=== PATIENT | male | born 1960 | race Caucasian/White ===

== ENCOUNTER 2016-04-27 15:11 | Emergency (ER) | payer OTHER ==
[~2016-04-27] VITALS: Wt 73.5 kg
[~2016-04-27 15:11] MED LIST: ASPI81TA3 PO; CALC667T2 PO; CENTSILV PO; HYDR-3671 PO; INSU100C SC; INSU100C5 SQ; ISOS60TA36 PO; METO-53 PO; OMEP20CA16 PO; SIMV20TA PO; VITAMIN B12 PO
--- NOTE | 2016-04-27 16:44 | EN ---
Date/Time of Note Date/Time of Note DATE: 04/27/16 TIME: 16:42 ER Progress Note 56-year-old male with a past medical history of diabetes and renal failure is currently receiving hemodialysis 3 times a week and is here for a right foot injury. States that he jammed his right great toe and it started to blister and is not healing properly since 4 days ago. States that he saw his primary care physician earlier today and was sent here to the ER for further evaluation and treatment. Patient was seen here at [facility] however will be sent to ED2 for further evaluation and treatment. MARVEL AVENDAÑO PA-C Apr 27, 2016 16:44
--- NOTE | 2016-04-27 18:30 | RADRPT ---
PROCEDURE: XR Toes. CLINICAL INDICATION: Post traumatic right great toe pain TECHNIQUE: AP, oblique and lateral views of the right great toe were performed. COMPARISON: No prior studies are available for comparison. FINDINGS: There is normal mineralization and alignment. No fracture or osseous lesion is identified. The joint s are normal. The soft tissues are unremarkable. There is no evidence for radiopaque foreign body. A therosclerotic calcification of the digital arteries is present. RPTAT:HJJR IMPRESSION: 1. No evidence of acute post traumatic abnormality of the right great toe. 2. Atherosclerotic calcification of the digital artery. Physician Dora Date Time Electronically viewed and signed by Physician Dora on 04/27/2016 18:30 JR/
[2016-04-27] MEDS ORDERED: CEPH-443 PO (18:34)
[2016-04-27] MEDS ORDERED: BAC30OI TOP (18:34)
[2016-04-27 18:53] VITALS: BP 185/86; PULSE 75; RESP 17; TEMP 98.3
--- NOTE | 2016-04-27 19:20 | ERD ---
ER Documentation Chief Complaint Date/Time DATE: 04/27/16 TIME: 19:17 Chief Complaint right great toe blister that popped. no fevers. no active bleeding HPI 56-year-old male with a history of renal insufficiency, diabetes was referred to the emergency department for right great toe trauma that occurred 2 days ago. Patient states he jammed it, causing superficial wound to the bottom of his foot. He has been applying Neosporin on it. He denies any pain. However he does report neuropathy. His last tetanus shot was in the last 2 years. ROS All systems reviewed and are negative except as per history of present illness. Medications Home Meds Active Scripts Bacitracin* (Bacitracin Zinc Oint*) 28.35 Gm Oint, 1 APPLIC TOP BID, #1 TUB APPLI TO Prov:ANKITA WANG PA-C 04/27/16 Cephalexin* (Keflex*) 500 Mg Capsule, 500 MG PO QID for 7 Days, CAP Prov:ANKITA WANG PA-C 04/27/16 Reported Medications Aspirin (Aspirin) 81 Mg Chew, PO DAILY 12/10/12 Multivitamins/Minerals (Centrum Silver) 1 Tab Tab, PO DAILY 06/14/12 [Vitamin B12] No Conflict Check, 1000 MCG PO DAILY 06/14/12 Omeprazole* (Omeprazole*) 20 Mg Capsule.dr, PO DAILY 06/14/12 Simvastatin* (Zocor*) 20 Mg Tablet, PO DAILY 06/14/12 Metoprolol (Lopressor) 50 Mg Tablet, PO BID 06/14/12 Isosorbide Mononitrate (Isosorbide Mononitrate) 60 Mg Tab.sr.24h, PO DAILY 06/14/12 Calcium Acetate (Calphron) 667 Mg Tablet, 2 CAP PO TID 06/14/12 Hydralazine Hcl* (Apresoline*) 25 Mg Tab, 3 TAB PO TID 06/14/12 Insulin Glargine,Hum.rec.anlog (Lantus) 100 U/Ml Cartridge, 24 U SQ HS 06/14/12 Insulin Lispro (Humalog) 100 U/Ml Cartridge, SC SEE COMMENTS, 0 Refills 06/14/12 Allergies Allergies: Coded Allergies: No Known Allergy (Unverified , 12/10/12) PMhx/Soc History of Surgery: Yes (R. KNEE, RUE AV FISTULA ,L. EYE LASER TREATMENT ) Anesthesia Reaction: No Hx Neurological Disorder: No Hx Respiratory Disorders: No Hx Cardiac Disorders: Yes (HTN) Hx Psychiatric Problems: No Hx Miscellaneous Medical Probl: Yes (CHRONIC ANEMIA,OSTEOARTHRITIS) Hx Alcohol Use: No Hx Substance Use: No Hx Tobacco Use: No Physical Exam Vitals Vital Signs Date Time Temp Pulse Resp B/P Pulse Ox O2 Delivery O2 Flow Rate FiO2 04/27/16 18:53 98.3 75 17 185/86 98 Room Air 04/27/16 15:20 98.8 75 21 165/85 98 Physical Exam General: Well-developed, well-nourished. The patient appears in no acute distress. HEENT: Head is normocephalic, atraumatic. No scleral icterus. Neck: Supple. Nontender. Lungs: Clear to auscultation. Normal air movement. Heart: Regular rate and rhythm. S1 and S2 are normal. No murmurs, gallops, or rubs. Abdomen: Nondistended. Extremities: Patient is able to flex and dorsiflex his right great toe, capillary refill less than 2 seconds. There is superficial portion of the bottom aspect of the right great toe is missing, is approximately 1.5 versus 2 cm. Neurologic: Alert and oriented 3. No focal deficits. Normal speech and gait. Skin: Normal turgor. No rash or lesions. Procedures/MDM X-ray Toe 2V Interpreted by the radiologist: Bones: No fracture Joints: No dislocation Foreign body: None MDM: 48-year-old male comes in with a superficial wound to the bottom aspect of the right great toe, there is no evidence of fracture, cellulitis, I doubt underlying osteomyelitis. X-ray was unremarkable, he will be given a wound care instructions, as well as follow-up at the amputation prevention center. Departure Diagnosis: Primary Impression: Encounter for wound re-check Additional Impressions: Avulsion of toe Avulsion injury Condition: Good Patient Instructions: Wound Care, Contusion, Lower Extremity Referrals: [facility] Additional Instructions: WOUND CLINIC : YOU HAVE A MEDICAL CONDITION WHICH REQUIRES YOU TO SEE A SPECIALIST WITHIN THE NEXT 1-2 DAYS. ANKITA WANG PA-C Apr 27, 2016 19:20
== END 2016-04-27 18:53 | disposition home or self-care (01) ==
LOC: FTE 15:11
DX: S91.101A Unspecified open wound of right great toe without damage to nail, initial encounter (principal); I10 Essential (primary) hypertension; E10.9 Type 1 diabetes mellitus without complications; W23.1XXA Caught, crushed, jammed, or pinched between stationary objects, initial encounter; Y92.9 Unspecified place or not applicable; Z79.82 Long term (current) use of aspirin
CPT/HCPCS: 73660; Z7502

== ENCOUNTER 2016-11-06 19:56 | Emergency (ER) | payer OTHER ==
[~2016-11-06] VITALS: Ht 172.7 cm; Wt 80.0 kg
[~2016-11-06 19:56] MED LIST changes: +BACI28.34 TOP; +CEPH-443 PO
[2016-11-06 20:09] VITALS: Ht 172.7 cm; Wt 80.0 kg
[2016-11-06] MEDS ORDERED: LIDOCAINE 1% (MDV) 20 ML INJ SC ONE (23:30)
[2016-11-07] MEDS ORDERED: CEPH-443 PO (00:04)
--- NOTE | 2016-11-07 00:18 | ERD ---
ER Documentation Chief Complaint Date/Time DATE: 11/07/16 TIME: 00:08 Chief Complaint pt reports cutting RLE at work this morning and it is still bleeding HPI This is a 56-year-old male presents to emergency department today complaining of a laceration on his right lower leg that will not stop bleeding. Patient states she was at work when he stepped on a box in the box tripped over the metal cut his segal. States he had his tetanus updated less than 1 year ago. States he has diabetes and dialysis was worried about infection. States he is currently taking amoxicillin because he recently had some dental work. States he usually takes aspirin but stopped it because of the general work. Denies any fevers or chills. ROS All systems reviewed and are negative except as per history of present illness. Medications Home Meds Active Scripts Cephalexin* (Keflex*) 500 Mg Capsule, 500 MG PO QID for 7 Days, CAP Prov:JOSE E MCCRAY PA-C 11/07/16 Bacitracin* (Bacitracin Zinc Oint*) 28.35 Gm Oint, 1 APPLIC TOP BID, #1 TUB APPLI TO Prov:ANKITA WANG PA-C 04/27/16 Cephalexin* (Keflex*) 500 Mg Capsule, 500 MG PO QID for 7 Days, CAP Prov:ANKITA WANG PA-C 04/27/16 Reported Medications Aspirin (Aspirin) 81 Mg Chew, PO DAILY 12/10/12 Multivitamins/Minerals (Centrum Silver) 1 Tab Tab, PO DAILY 06/14/12 [Vitamin B12] No Conflict Check, 1000 MCG PO DAILY 06/14/12 Omeprazole* (Omeprazole*) 20 Mg Capsule.dr, PO DAILY 06/14/12 Simvastatin* (Zocor*) 20 Mg Tablet, PO DAILY 06/14/12 Metoprolol (Lopressor) 50 Mg Tablet, PO BID 06/14/12 Isosorbide Mononitrate (Isosorbide Mononitrate) 60 Mg Tab.sr.24h, PO DAILY 06/14/12 Calcium Acetate (Calphron) 667 Mg Tablet, 2 CAP PO TID 06/14/12 Hydralazine Hcl* (Apresoline*) 25 Mg Tab, 3 TAB PO TID 06/14/12 Insulin Glargine,Hum.rec.anlog (Lantus) 100 U/Ml Cartridge, 24 U SQ HS 06/14/12 Insulin Lispro (Humalog) 100 U/Ml Cartridge, SC SEE COMMENTS, 0 Refills 06/14/12 Allergies Allergies: Coded Allergies: No Known Allergy (Unverified , 12/10/12) PMhx/Soc History of Surgery: Yes (R. KNEE, RUE AV FISTULA ,L. EYE LASER TREATMENT ) Anesthesia Reaction: No Hx Neurological Disorder: No Hx Respiratory Disorders: No Hx Cardiac Disorders: Yes (HTN) Hx Psychiatric Problems: No Hx Miscellaneous Medical Probl: Yes (CHRONIC ANEMIA,OSTEOARTHRITIS) Hx Alcohol Use: No Hx Substance Use: No Hx Tobacco Use: No Smoking Status: Never smoker Physical Exam Vitals Vital Signs Date Time Temp Pulse Resp B/P Pulse Ox O2 Delivery O2 Flow Rate FiO2 11/06/16 20:09 98.4 72 18 171/89 98 Physical Exam Const: NAD Head: Atraumatic Eyes: Normal Conjunctiva ENT: Normal External Ears, Nose and Mouth. Neck: Full range of motion..~ No meningismus. Resp: Clear to auscultation bilaterally Cardio: Regular rate and rhythm, no murmurs Abd: Soft, non tender, non distended. Normal bowel sounds Skin: 3 cm laceration right tibia bleeding controlled. No erythema or warmth.. Back: No midline or flank tenderness Ext: No cyanosis, or edema. Full active range of motion of knee and ankle. 3 cm laceration right tibia bleeding controlled. No erythema or warmth. Neur: Awake and alert Psych: Normal Mood and Affect Results 24 hrs Current Medications Medications (Trade) Dose Ordered Sig/Celso Route PRN Reason Start Time Stop Time Status Last Admin Dose Admin Lidocaine (Xylocaine 1% (Mdv) 20 ml) 20 ml ONCE ONCE SC 11/06/16 23:30 11/06/16 23:31 DC Procedures/MDM This is a 56 -year-old male who presents emergency department today for a laceration on his right leg that will not stop bleeding. Patient indicated that he cut his leg approximately 9 AM this morning. It has been a little over 12 hours when patient checked in however patient does continue to have bleeding on his right tibia. I do feel the best way to stop the bleeding is to have primary intention wound closure. I did discuss this with Dr. Palma prior to the procedure and he is in agreement. I have explained to the patient that I do feel the best way to stop the bleeding is for the patient to have sutures placed. I explained the risks and benefits of the procedure and the patient agreed to proceed. Wound was cleaned in the usual sterile fashion. Patient tolerated the procedure well and there were no complications. Patient had limited pain and declined an x-ray at this time. There is no evidence of foreign body. Low suspicion for acute fracture. Patient is afebrile and otherwise well-appearing. I have low suspicion for cellulitis, sepsis or deep space infection. Laceration Repair by me: Anesthesia: 1% lidocaine locally 2 cc Location: Right tibia Tendon/Joint/Nerves: No injury Foreign body: None detected after copious irrigation and exploration Technique: 6 Simple Interrupted Sutures using 4.0 prolene Complexity: No subcutaneous sutures/mucosal repair/ edge excision Post Closure Length: 3 cm Patient's bleeding was easily controlled in the department and there is no indication of anemia. No evidence of compartment syndrome, neurologic injury, vascular injury, open joint, tendon laceration, or foreign body. Patient is appropriate for outpatient follow up. 48 hour wound check. Scar minimization instructions given.Patient was given a prescription for Keflex. Patient declined pain medication here in the emergency department and he indicated that he does have pain medication at home. He may return in 7-10 days for suture removal. At this time the patient is stable for discharge and outpatient management. Patient should follow up with their PCP in the next 1-2 days. They may return to the emergency department sooner for any persistent or worsening of symptoms. Patient understood and agreed with the plan. Departure Diagnosis: Primary Impression: Laceration Condition: Fair Patient Instructions: Laceration, All Referrals: EMERITA BROOKS (PCP) Additional Instructions: Call your primary care doctor TOMORROW for an appointment during the next 1-2 days.See the doctor sooner or return here if your condition worsens before your appointment time. Take antibiotics as prescribed. Keep wound clean and dry. Wound check in 48 hours. Suture removal in 7-10 days.You may take your usual pain medication. JOSE E MCCRAY PA-C Nov 07, 2016 00:18
[2016-11-07 00:25] VITALS: BP 202/96; PULSE 75; RESP 18; TEMP 97.7
== END 2016-11-07 00:27 | disposition home or self-care (01) ==
LOC: FTE 19:56
DX: S81.811A Laceration without foreign body, right lower leg, initial encounter (principal); I10 Essential (primary) hypertension; E11.9 Type 2 diabetes mellitus without complications; W26.8XXA Contact with other sharp object(s), not elsewhere classified, initial encounter; Y92.9 Unspecified place or not applicable; Z79.4 Long term (current) use of insulin; Z79.82 Long term (current) use of aspirin
CPT/HCPCS: 12002; Z7502; Z7610

== ENCOUNTER 2016-12-05 15:34 | Emergency (ER) | payer OTHER ==
[~2016-12-05] VITALS: Ht 162.6 cm; Wt 82.0 kg
[2016-12-05 15:39] VITALS: Ht 162.6 cm; Wt 82.0 kg
--- NOTE | 2016-12-05 17:41 | RADRPT ---
PROCEDURE: US left lower extremity veins. CLINICAL INDICATION: Left leg pain and swelling. TECHNIQUE: Multiple longitudinal and transverse images of the left lower extremity veins were obta ined with anne scale and color Doppler imaging. The common femoral vein, femoral vein, and popliteal vein were evaluated. 2D grayscale measurements with compression sonography, pulsed Doppler, color D oppler, and pulsed Doppler with augmentation. COMPARISON: No prior studies are available for comparison. FINDINGS: The left common femoral, femoral and popliteal veins are normally compressible throughout. Color fl ow demonstrates normal filling of the vessels. Normal waveforms are visualized and there is normal response to augmentation. IMPRESSION: 1. No evidence of deep vein thrombosis involving the left lower extremity. RPTAT: QQ .Frederick Romero MD, MD Date Time Electronically viewed and signed by .Frederick Romero MD, on 12/05/2016 17:41 .R/
[2016-12-05] MEDS ORDERED: CEPH-443 PO (18:33)
[2016-12-05] MEDS ORDERED: SULF1TAB31 PO (18:33)
--- NOTE | 2016-12-05 18:44 | ERD ---
ER Documentation Chief Complaint Date/Time DATE: 12/05/16 TIME: 18:38 Chief Complaint LEFT BELOW KNEE PAIN X 2 WEEKS HPI Patient is a 56-year-old male with a past medical history of diabetes, renal failure on dialysis, hypertension and psoriasis presents to the ED with left leg swelling, pain 2 weeks. States that he does get pain in his joints however the swelling is new. Denies chest pain or cough or shortness of breath. States that his dialysis schedule is on Tuesdays, , Monday. Denies trauma, falls. Denies fever or chills. No other c/o ROS All systems reviewed and are negative except as per history of present illness. Medications Home Meds Active Scripts Cephalexin* (Keflex*) 500 Mg Capsule, 500 MG PO BID for 7 Days, CAP Prov:WING AVILEZ PA-C 12/05/16 Sulfamethoxazole/Trimethoprim* (Bactrim Ds* Tablet) 1 Each Tablet, 1 TAB PO BID , #7 TAB Prov:WING AVILEZ PA-C 12/05/16 Cephalexin* (Keflex*) 500 Mg Capsule, 500 MG PO QID for 7 Days, CAP Prov:JOSE E MCCRAY PA-C 11/07/16 Bacitracin* (Bacitracin Zinc Oint*) 28.35 Gm Oint, 1 APPLIC TOP BID, #1 TUB APPLI TO Prov:ANKITA WANG PA-C 04/27/16 Cephalexin* (Keflex*) 500 Mg Capsule, 500 MG PO QID for 7 Days, CAP Prov:ANKITA WANG PA-C 04/27/16 Reported Medications Aspirin (Aspirin) 81 Mg Chew, PO DAILY 12/10/12 Multivitamins/Minerals (Centrum Silver) 1 Tab Tab, PO DAILY 06/14/12 [Vitamin B12] No Conflict Check, 1000 MCG PO DAILY 06/14/12 Omeprazole* (Omeprazole*) 20 Mg Capsule.dr, PO DAILY 06/14/12 Simvastatin* (Zocor*) 20 Mg Tablet, PO DAILY 06/14/12 Metoprolol (Lopressor) 50 Mg Tablet, PO BID 06/14/12 Isosorbide Mononitrate (Isosorbide Mononitrate) 60 Mg Tab.sr.24h, PO DAILY 06/14/12 Calcium Acetate (Calphron) 667 Mg Tablet, 2 CAP PO TID 06/14/12 Hydralazine Hcl* (Apresoline*) 25 Mg Tab, 3 TAB PO TID 06/14/12 Insulin Glargine,Hum.rec.anlog (Lantus) 100 U/Ml Cartridge, 24 U SQ HS 06/14/12 Insulin Lispro (Humalog) 100 U/Ml Cartridge, SC SEE COMMENTS, 0 Refills 06/14/12 Allergies Allergies: Coded Allergies: No Known Allergy (Unverified , 12/10/12) PMhx/Soc History of Surgery: Yes (R. KNEE, RUE AV FISTULA ,L. 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 Appears in no acute distress. HEAD: Normocephalic, atraumatic. EYES: Pupils are equally reactive bilaterally. EOMs grossly intact. No conjunctival erythema. ENT: Moist mucous membranes. No uvula deviation. No kissing tonsils. No exudates. NECK: Supple. No lymphadenopathy or thyromegaly. No meningismus. negative kernig. negative brudinski. LUNG: Clear to auscultation bilaterally. No rhonchi, wheezing, rales or coarse breath sounds. HEART: Regular rate and rhythm. No murmurs, rubs or gallops. ABDOMEN: No scars, ecchymosis or rashes noted. Soft, nontender, and nondistended. Positive bowel sounds in all four quadrants. No rebound tenderness , no guarding. (-) McBurneys point tenderness. No CVA tenderness. BACK: No midline tenderness. Extremities: Equal pulses bilaterally. No peripheral clubbing, left leg has swelling, tenderness, warm. pulses intact bilaterally. No step-offs or deformities. NEUROLOGIC: Alert and oriented. Moving all four extremities. 5/5 strength in all extremities. Normal speech. Steady gait. SKIN: Normal color. Warm and dry. No rashes or lesions. Capillary refill < 2 seconds Procedures/MDM ER COURSE: I kept the patient and/or family informed of laboratory and diagnostic imaging results throughout the emergency room course. MEDICAL DECISION MAKING: This is a 56-year-old male who presents with left leg pain and swelling 2 weeks. Vital signs were reviewed. Patient is afebrile. Patient is not hypoxic. It is not toxic or ill-appearing I consulted with my supervising physician Dr. Benavidez. Duplex u/s was unremarkable for DVT. Dr. Benavidez came to examine patient at bedside and agrees with my medical decision making and discharge plans. Patient likely has venous insufficiency versus cellulitis. Patient will be treated for cellulitis and to follow-up with vascular surgeon for further evaluation and studies of his blood flow. Low suspicion for dislocation, fracture, septic joint, compartment syndrome, osteomyelitis, avascular necrosis , DVT, Achilles tendon rupture, cellulitis. At this time, unable to rule out any tendon and ligament injuries. DISCHARGE: At this time, patient is stable for discharge and outpatient management with no new complaints during the ER course. Patient was sent home with him, Keflex and to follow-up with primary care provider. Patient will be discharged home with instructions to recheck for new or worsening symptoms such as fever, nausea, weakness, LOC and to follow up with primary care in the next 1-2 days. Patient was advised to return to the ER for any new or worsening symptoms. Plan was discussed and patient and/or family understands and agrees. Home instructions were given. Departure Diagnosis: Primary Impression: Cellulitis Site of cellulitis: extremity Site of cellulitis of extremity: lower extremity Laterality: left Qualified Code: L03.116 - Cellulitis of left lower extremity Additional Impression: Venous insufficiency of left leg Condition: Stable Patient Instructions: Understanding Chronic Venous Insufficiency, Cellulitis Additional Instructions: Call your primary care doctor TOMORROW for an appointment during the next 1-2 days.See the doctor sooner or return here if your condition worsens before your appointment time. WING AVILEZ PA-C Dec 05, 2016 18:44
[2016-12-05 19:24] VITALS: BP 162/72; PULSE 77; RESP 18; TEMP 98.1
== END 2016-12-05 19:15 | disposition home or self-care (01) ==
LOC: FTE 15:34
DX: L03.116 Cellulitis of left lower limb (principal); I87.2 Venous insufficiency (chronic) (peripheral); E11.9 Type 2 diabetes mellitus without complications; I12.0 Hypertensive chronic kidney disease with stage 5 chronic kidney disease or end stage renal disease; N18.6 End stage renal disease; Z79.4 Long term (current) use of insulin; Z79.82 Long term (current) use of aspirin; Z99.2 Dependence on renal dialysis
CPT/HCPCS: 93971; Z7502

== ENCOUNTER 2016-12-14 14:17 | Emergency (ER) | payer OTHER ==
[~2016-12-14] VITALS: Ht 172.7 cm; Wt 77.5 kg
[~2016-12-14 14:17] MED LIST changes: +SULF1TAB31 PO
[2016-12-14 14:27] VITALS: Ht 172.7 cm; Wt 77.5 kg
--- NOTE | 2016-12-14 18:07 | ERD ---
ER Documentation Chief Complaint Date/Time DATE: 12/14/16 TIME: 18:05 Chief Complaint Left foot pain/swelling x 1 month HPI Patient is a 56-year-old male who presents to the ER with 1 month of atraumatic left leg swelling and pain. He was seen in the ER 10 days ago, and had a negative ultrasound for DVT. There were no obvious signs of cellulitis, but he was treated with a course of antibiotics. He states that he has had no improvement, but it has not worsened. He denies fever, redness, warmth. He states that the pain is in the posterior left calf between the ankle and the knee. He denies joint pain at the ankle or knee. He denies ulcers on his feet. ROS All systems reviewed and are negative except as per history of present illness. Medications Home Meds Reported Medications Clobetasol Propionate* (Clobetasol Propionate*) 60 Gm Cream.gm., 1 APPLIC TOP BID, #1 TUB 12/14/16 Calcipotriene (Calcipotriene) 60 Gm Cream..g., 1 APPLIC TOP BID, TUB 12/14/16 Calcipotriene* (Calcipotriene*) 0.005%-60 Gm Oint...g., 1 APPLIC TOP BID, TUB 12/14/16 Apremilast (Otezla) 30 Mg Tablet, 30 MG PO BID, TAB 12/14/16 Cyanocobalamin* (Vitamin B12*) 500 Mcg Tab, 500 MCG PO DAILY, TAB 12/14/16 Cholecalciferol (Vitamin D3) (Vitamin D3) 5,000 Unit Tab.rapdis, 5000 UNIT PO DAILY 12/14/16 [place]-3 Fatty Acids/Fish Oil (Fish Oil 1,000 mg Capsule) 1 Each Capsule, 1 EACH PO DAILY, CAP 12/14/16 Multivitamins* (Theragran*) 1 Tab Tab, 1 TAB PO DAILY, TAB 12/14/16 Ferrous Sulfate* (Ferrous Sulfate*) 325 Mg Tabec, 325 MG PO DAILY, TAB 12/14/16 Insulin Lispro (Humalog) 100 Unit/1 Ml Cartridge, 0 SQ SLIDING SCALE 12/14/16 Insulin Glargine* (Lantus*) 100 Unit/Ml Soln, 50 UNIT SC QHS, #1 VIAL 12/14/16 Carvedilol* (Carvedilol*) 6.25 Mg Tablet, 6.25 MG PO BID, #60 TAB 12/14/16 Hydralazine Hcl* (Hydralazine Hcl*) 25 Mg Tab, 25 MG PO BID, #60 TAB 12/14/16 Simvastatin* (Zocor*) 20 Mg Tablet, 20 MG PO QHS, #30 TAB 12/14/16 Aspirin* (Aspirin* EC) 81 Mg Tablet.dr, 81 MG PO DAILY, TAB 12/14/16 Omeprazole* (Omeprazole*) 20 Mg Capsule.dr, 20 MG PO DAILY, #30 CAP 12/14/16 Calcium Acetate* (Calcium Acetate*) 667 Mg Capsule, 2001 MG PO WITH MEALS, #90 CAP 12/14/16 Discontinued Reported Medications Aspirin (Aspirin) 81 Mg Chew, PO DAILY 12/10/12 Multivitamins/Minerals (Centrum Silver) 1 Tab Tab, PO DAILY 06/14/12 [Vitamin B12] No Conflict Check, 1000 MCG PO DAILY 06/14/12 Omeprazole* (Omeprazole*) 20 Mg Capsule.dr, PO DAILY 06/14/12 Simvastatin* (Zocor*) 20 Mg Tablet, PO DAILY 06/14/12 Metoprolol (Lopressor) 50 Mg Tablet, PO BID 06/14/12 Isosorbide Mononitrate (Isosorbide Mononitrate) 60 Mg Tab.sr.24h, PO DAILY 06/14/12 Calcium Acetate (Calphron) 667 Mg Tablet, 2 CAP PO TID 06/14/12 Hydralazine Hcl* (Apresoline*) 25 Mg Tab, 3 TAB PO TID 06/14/12 Insulin Glargine,Hum.rec.anlog (Lantus) 100 U/Ml Cartridge, 24 U SQ HS 06/14/12 Insulin Lispro (Humalog) 100 U/Ml Cartridge, SC SEE COMMENTS, 0 Refills 06/14/12 Discontinued Scripts Cephalexin* (Keflex*) 500 Mg Capsule, 500 MG PO BID for 7 Days, CAP Prov:WING AVILEZ PA-C 12/05/16 Sulfamethoxazole/Trimethoprim* (Bactrim Ds* Tablet) 1 Each Tablet, 1 TAB PO BID , #7 TAB Prov:WING AVILEZ PA-C 12/05/16 Cephalexin* (Keflex*) 500 Mg Capsule, 500 MG PO QID for 7 Days, CAP Prov:JOSE E MCCRAY PA-C 11/07/16 Bacitracin* (Bacitracin Zinc Oint*) 28.35 Gm Oint, 1 APPLIC TOP BID, #1 TUB APPLI TO Prov:ANKITA WANG PA-C 04/27/16 Cephalexin* (Keflex*) 500 Mg Capsule, 500 MG PO QID for 7 Days, CAP Prov:ANKITA WANG PA-C 04/27/16 Allergies Allergies: Coded Allergies: No Known Allergy (Unverified , 12/14/16) PMhx/Soc Past medical history: Diabetes mellitus, end-stage renal disease, hypertension Past surgical history: Right arm fistula Social history: Denies tobacco or alcohol History of Surgery: Yes (R. KNEE, RUE AV FISTULA ,L. EYE LASER TREATMENT ) Anesthesia Reaction: No Hx Neurological Disorder: No Hx Respiratory Disorders: No Hx Cardiac Disorders: Yes (HTN) Hx Psychiatric Problems: No Hx Miscellaneous Medical Probl: Yes (CHRONIC ANEMIA,OSTEOARTHRITIS, ESRE ON HD , DM) Hx Alcohol Use: No Hx Substance Use: No Hx Tobacco Use: No Smoking Status: Never smoker FmHx Noncontributory Physical Exam Vitals Vital Signs Date Time Temp Pulse Resp B/P Pulse Ox O2 Delivery O2 Flow Rate FiO2 12/14/16 20:01 79 18 152/61 97 Room Air 12/14/16 18:35 98.3 79 18 168/84 98 Room Air 12/14/16 14:27 98.3 97 18 150/66 95 Physical Exam Const: Alert, no acute distress Head: Atraumatic Eyes: Normal Conjunctiva ENT: Normal External Ears, Nose and Mouth. Neck: Full range of motion..~ No meningismus. Resp: Clear to auscultation bilaterally Cardio: Regular rate and rhythm, no murmurs Abd: Soft, non tender, non distended. Normal bowel sounds Skin: No petechiae or rashes Back: No midline or flank tenderness Ext: No cyanosis, 2+ pitting edema to left foot, ankle and segal. No warmth or erythema. Mild tenderness to the posterior left calf. No palpable cords. No joint effusion or pain with passive range of motion at the knee or ankle. Skin intact, no ulcers. 2+ DP pulses, 2 second cap refill all toes. Compartments soft. Neur: Awake and alert, Cranial nerves II through XII intact bilaterally, strength and cessation for 4 extremities. Psych: Normal Mood and Affect Results 24 hrs Laboratory Tests Test 12/14/16 18:05 Creatine Kinase 115IU/L Procedures/MDM MDM: Patient is a 56-year-old male who presents with atraumatic left leg pain and swelling. He was seen in the ER 2 weeks ago and had an ultrasound that was negative for DVT. At that time there was a question of cellulitis, although there were not findings that were highly suspicious. He was treated with a course of antibiotics without change. At this time, I do not see signs of cellulitis. Repeat ultrasound is negative for DVT. There is no evidence of rhabdomyolysis, traumatic injury, joint effusion, or other obvious etiology of the patient's pain. Given that it is chronic, I have advised him to follow-up further with his PMD. He may have asymmetric edema due to volume overload from underlying renal disease. If symptoms persist, he may require outpatient MRI. Departure Diagnosis: Primary Impression: Leg swelling Additional Impression: End stage renal disease Condition: BUBBA Ibrahim MD Dec 14, 2016 18:07
[2016-12-14 18:35] VITALS: TEMP 98.3
--- NOTE | 2016-12-14 18:47 | RADRPT ---
PROCEDURE: US Lower extremity Venous. CLINICAL INDICATION: Lower extremity pain and swelling TECHNIQUE: Multiple sonographic images of the left lower extremity deep venous system was obtained utilizing grayscale, color-flow, compressive sonography and doppler imaging with augmentation. The images were reviewed on a PACS workstation. COMPARISON: None. FINDINGS: There is normal compressibility and flow within the left common femoral, superficial femoral and pop liteal veins. Antegrade flow seen in the posterior tibial and peroneal veins. IMPRESSION: No sonographic evidence for deep venous thrombosis. RPTAT: AA .Chris Jacobs MD, MD Date Time Electronically viewed and signed by .Chris Jacobs MD, MD on 12/14/2016 18:46 .P/
[2016-12-14] MEDS ORDERED: CALC667C PO (18:50)
[2016-12-14] MEDS ORDERED: OMEP20CA16 PO (18:50)
[2016-12-14] MEDS ORDERED: ASPI-664 PO (18:51)
[2016-12-14] MEDS ORDERED: SIMV20TA PO (18:51)
[2016-12-14] MEDS ORDERED: HYDR-3671 PO (18:52)
[2016-12-14] MEDS ORDERED: CARV6.2579 PO (18:52)
[2016-12-14] MEDS ORDERED: LANT3I SC (18:53)
[2016-12-14] MEDS ORDERED: FER325 PO (18:54)
[2016-12-14] MEDS ORDERED: INSU100C SQ (18:54)
[2016-12-14] MEDS ORDERED: OMEG-135 PO (18:55)
[2016-12-14] MEDS ORDERED: MULTI PO (18:55)
[2016-12-14] MEDS ORDERED: CHOL500062 PO (18:56)
[2016-12-14] MEDS ORDERED: CYAN500T46 PO (18:57)
[2016-12-14] MEDS ORDERED: APRE30TA2 PO (18:58)
[2016-12-14] MEDS ORDERED: CALC60CR4 TOP (19:00)
[2016-12-14] MEDS ORDERED: CALC60OI3 TOP (19:00)
[2016-12-14] MEDS ORDERED: CLOB60CR2 TOP (19:02)
[2016-12-14 20:01] VITALS: BP 152/61; PULSE 79; RESP 18
== END 2016-12-14 20:03 | disposition home or self-care (01) ==
LOC: E/R 14:17
DX: M79.89 Other specified soft tissue disorders (principal); I12.0 Hypertensive chronic kidney disease with stage 5 chronic kidney disease or end stage renal disease; N18.6 End stage renal disease; E11.22 Type 2 diabetes mellitus with diabetic chronic kidney disease; Z79.4 Long term (current) use of insulin; Z79.82 Long term (current) use of aspirin
CPT/HCPCS: 82550; 93971; Z7502; 99283

== ENCOUNTER → 2017-01-20 | Day surgery (SDC) | payer OTHER ==
[~2017-01-20] VITALS: Ht 172.7 cm; Wt 75.5 kg
[~2017-01-20] MED LIST changes: +APRE30TA2 PO; +ASPI-664 PO; -ASPI81TA3 PO; -BACI28.34 TOP; +CALC60CR4 TOP; +CALC60OI3 TOP; +CALC667C PO; -CALC667T2 PO; +CARV6.2579 PO; -CENTSILV PO; -CEPH-443 PO; +CHOL500062 PO; +CLOB60CR2 TOP; +CYAN500T46 PO; +FER325 PO; -INSU100C SC; +INSU100C SQ; -INSU100C5 SQ; +IODIXANOL LOCM 50 ML BTL ONE; -ISOS60TA36 PO; +LANT3I SC; +LIDOCAINE 1% (MDV) 20 ML INJ ONE; -METO-53 PO; +MULTI PO; +OMEG-135 PO; -SULF1TAB31 PO; -VITAMIN B12 PO
[2017-01-20 14:48] VITALS: Ht 172.7 cm; Wt 75.5 kg
[2017-01-20 15:35] VITALS: BP 165/79; PULSE 90; RESP 18
--- NOTE | 2017-01-20 15:49 | SIPON ---
Date/Time of Note Date/Time of Note DATE: 01/20/17 TIME: 15:47 Operative Report Preoperative Diagnosis ESRD, malfunctioning right arm AVF Postoperative Diagnosis same Operation/Procedure Performed R arm AV fistulagram, PTV cephalic vein stenosis 10 x 40 balloon (>75% to < 20% stenosis) Surgeon see signature line aquatics assistant department head none Anesthesia: other Estimated blood loss: none Transfusion Required none Specimen none Grafts/Implants none Complications none SHIRAZ SANDRA MD Jan 20, 2017 15:49
--- NOTE | 2017-01-20 16:25 | OPR ---
DATE OF OPERATION: 01/20/2017 PREOPERATIVE DIAGNOSIS: Malfunctioning right arm arteriovenous fistula. POSTOPERATIVE DIAGNOSIS: Malfunctioning right arm arteriovenous fistula. PROCEDURE PERFORMED: 1. Right arm arteriovenous fistulogram. 2. Percutaneous venoplasty of the mid upper arm cephalic vein severe stenosis. SURGEON: Shiraz Trinidad MD ANESTHESIA: Local anesthesia. ESTIMATED BLOOD LOSS: Minimal. COMPLICATIONS: No intraprocedural complications. INDICATIONS: This is a 56-year-old diabetic hypertensive gentleman with end-stage renal disease, on dialysis via a right upper arm AV fistula. It is very pulsatile and there has been bleeding from t he fistula. 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 I brought wilfrido santoro in today for a fistulogram and possible intervention. DESCRIPTION OF PROCEDURE: The patient was brought to the lab specialist, placed on the table in supine p osition. Right arm was prepped and draped in usual sterile fashion. I began by infiltrating over t he fistula in the lower part of the upper arm just above the elbow with about 10 mL of 1% Xylocaine. I used a micropuncture needle to enter the vein. Under manual guidance, I advanced an 0.018 wire through the needle into the vein and then a micropuncture sheath was advanced over the wire into the vein. I then did a fistulogram with appropriate compression maneuvers to evaluate the arterial stefanie stomosis. Basically the arterial anastomosis is widely patent. There are 2 fair sized moderate siz ed pseudoaneurysms the mid upper arm, looks like a brachiocephalic fistula. Right between the 2 ane urysms is an area of severe narrowing greater than 75%. Above that, the second of the pseudoaneurys ms, the outflow vein is widely patent. The central veins were patent with no significant stenosis. I then advanced an 0.035 Glidewire into the fistula and up into the central veins. I exchanged the micropuncture sheath for a 6-Danish sheath over the wire, then I angioplastied the stenotic segment of cephalic vein first with an 8 x 40 balloon with about a 50% residual stenosis and then a 10 x 40 balloon to 14 atmospheres. There was still some mild waisting on the balloon, but after deflation of the balloon there was less than 20% residual stenosis. There was now a good thrill in the fistul a distal to the level of stenosis, suggesting good flow with no extravasation. I was happy with the results. I then removed the catheter sheaths and wires. We held pressure on the puncture site unt il there was good hemostasis. He tolerated the procedure well without any complications. Dictated By: SHIRAZ MISTRY/SORAYA Conf#: [id number] DID#: [id number] CC: BEVERLY CHATMAN MD;*EndCC*
[2017-01-20 17:30] VITALS: BP 165/79; PULSE 77; RESP 18
== END | disposition home or self-care (01) ==
LOC: SDS 14:01
PROVIDERS: ATTEND Surgery Vascular Surgery
DX: T82.858A Stenosis of other vascular prosthetic devices, implants and grafts, initial encounter (principal); T82.898A Other specified complication of vascular prosthetic devices, implants and grafts, initial encounter; I12.0 Hypertensive chronic kidney disease with stage 5 chronic kidney disease or end stage renal disease; E11.22 Type 2 diabetes mellitus with diabetic chronic kidney disease; N18.6 End stage renal disease; Z99.2 Dependence on renal dialysis; I25.10 Atherosclerotic heart disease of native coronary artery without angina pectoris; Y83.2 Surgical operation with anastomosis, bypass or graft as the cause of abnormal reaction of the patient, or of later complication, without mention of misadventure at the time of the procedure
CPT/HCPCS: 36902; 82962; C1725; C1894; J1644; Q9967; Z7610

== ENCOUNTER 2017-02-26 22:13 | Emergency (ER) | payer OTHER ==
[~2017-02-26] VITALS: Ht 167.6 cm; Wt 80.3 kg
[~2017-02-26 22:13] MED LIST changes: -IODIXANOL LOCM 50 ML BTL ONE; -LIDOCAINE 1% (MDV) 20 ML INJ ONE
[2017-02-26 22:19] VITALS: Ht 167.6 cm; Wt 80.3 kg
--- NOTE | 2017-02-26 23:39 | ERD ---
ER Documentation Chief Complaint Chief Complaint hiccups 3 hours ago HPI 56-year-old male with history of end-stage renal disease on hemodialysis, diabetes and hypertension presents to the emergency department complaining of persistent hiccups that started 3 hours ago. The patient denies cough, shortness of breath, chest pain. ROS A 12-point review of systems was performed and negative other than presented in the history of present illness. SYSTEMIC symptoms: no fever, chills, no night sweats, no weight loss EYE symptoms: No blurred vision, no eye discharge OTOLARYNGEAL symptoms: No hearing loss. No ear pain, no sore throat CARDIOVASCULAR symptoms: No chest pain or discomfort, no palpitations. PULMONARY symptoms: No dyspnea, no cough, no wheezing. GASTROINTESTINAL symptoms: No abdominal pain, no nausea, no vomiting, no diarrhea MUSCULOSKELETAL symptoms: No arthralgias, no muscle aches. NEUROLOGY symptoms: No confusion, no syncope, no numbness or tingling. SKIN: No rashes Medications Home Meds Active Scripts Baclofen* (Baclofen*) 10 Mg Tablet, 10 MG PO Q8 for 3 Days, #10 TAB Prov:SUE RICHARDSON MD 02/26/17 Metoclopramide* (Reglan*) 10 Mg Tablet, 10 MG PO Q6 Y for NAUSEA AND/OR VOMITING , #10 TAB Prov:SUE RICHARDSON MD 02/26/17 Reported Medications Clobetasol Propionate* (Clobetasol Propionate*) 60 Gm Cream.gm., 1 APPLIC TOP BID, #1 TUB 12/14/16 Calcipotriene (Calcipotriene) 60 Gm Cream..g., 1 APPLIC TOP BID, TUB 12/14/16 Calcipotriene* (Calcipotriene*) 0.005%-60 Gm Oint...g., 1 APPLIC TOP BID, TUB 12/14/16 Apremilast (Otezla) 30 Mg Tablet, 30 MG PO BID, TAB 12/14/16 Cyanocobalamin* (Vitamin B12*) 500 Mcg Tab, 500 MCG PO DAILY, TAB 12/14/16 Cholecalciferol (Vitamin D3) (Vitamin D3) 5,000 Unit Tab.rapdis, 5000 UNIT PO DAILY 12/14/16 [place]-3 Fatty Acids/Fish Oil (Fish Oil 1,000 mg Capsule) 1 Each Capsule, 1 EACH PO DAILY, CAP 12/14/16 Multivitamins* (Theragran*) 1 Tab Tab, 1 TAB PO DAILY, TAB 12/14/16 Ferrous Sulfate* (Ferrous Sulfate*) 325 Mg Tabec, 325 MG PO DAILY, TAB 12/14/16 Insulin Lispro (Humalog) 100 Unit/1 Ml Cartridge, 0 SQ SLIDING SCALE 12/14/16 Insulin Glargine* (Lantus*) 100 Unit/Ml Soln, 50 UNIT SC QHS, #1 VIAL 12/14/16 Carvedilol* (Carvedilol*) 6.25 Mg Tablet, 6.25 MG PO BID, #60 TAB 12/14/16 Hydralazine Hcl* (Hydralazine Hcl*) 25 Mg Tab, 25 MG PO BID, #60 TAB 12/14/16 Simvastatin* (Zocor*) 20 Mg Tablet, 20 MG PO QHS, #30 TAB 12/14/16 Aspirin* (Aspirin* EC) 81 Mg Tablet.dr, 81 MG PO DAILY, TAB 12/14/16 Omeprazole* (Omeprazole*) 20 Mg Capsule.dr, 20 MG PO DAILY, #30 CAP 12/14/16 Calcium Acetate* (Calcium Acetate*) 667 Mg Capsule, 2001 MG PO WITH MEALS, #90 CAP 12/14/16 Allergies Allergies: Coded Allergies: No Known Allergy (Unverified , 12/14/16) PMhx/Soc History of Surgery: Yes (av fistula, knee replacement rt) Anesthesia Reaction: No Hx Neurological Disorder: No Hx Respiratory Disorders: No Hx Cardiac Disorders: Yes (HTN) Hx Psychiatric Problems: No Hx Miscellaneous Medical Probl: Yes (CHRONIC ANEMIA,OSTEOARTHRITIS, ESRD ON HD , DM) Hx Alcohol Use: No Hx Substance Use: No Hx Tobacco Use: No Smoking Status: Never smoker Physical Exam Vitals Vital Signs Date Time Temp Pulse Resp B/P Pulse Ox O2 Delivery O2 Flow Rate FiO2 02/26/17 22:19 99.6 86 20 167/87 97 Physical Exam Patient is in no acute distress, vital signs stable. Alert and fully oriented. EYES: PERRLA, EOMI, Sclera and conjunctiva appear normal. EARS: Canals clear, tympanic membranes WNL THROAT: Normal oropharynx. NECK: Supple, No lymphadenopathy. Full ROM without pain or tenderness. HEART: RRR, no rubs, murmurs, clicks or gallops. LUNGS: Clear to auscultation. ABDOMEN: Soft, non-tender without masses or hepatosplenomegaly. EXTREMITIES: No edema bilaterally. BACK: Full ROM, no deformity, normal back exam NEURO: Cranial nerves grossly intact, no motor or sensory deficit Procedures/MDM 56-year-old male with multiple medical problems presents to the emergency department complaining of persistent hiccups for 3 hours. Vital signs stable, Physical exam unremarkable. Low suspicion for acute systemic process. Physical examination and clinical presentation consistent most likely with hiccups. During the ED course the patient remained stable, no new complaints. Results and clinical impression discussed with patient who agrees with management. The patient is stable to be treated outpatient and will be discharged home with a Rx for metoclopramide and baclofen, some side effects of prescribed medications (headache, rash, nausea, vomiting, diarrhea, drowsiness, habituation, bleeding, hypertension, interactions with other medications) were reviewed. The patient was instructed to follow up with the primary care provider in the next 48h. If symptoms persist, worsen or new symptoms develop, then patient should return to the ED immediately. Instructions explained and given directly by me to the patient with acknowledgment and demonstrated understanding. Disclaimer: Inadvertent spelling and grammatical errors are likely due to EHR/ dictation software use and do not reflect on the overall quality of patient care. Also, please note that the electronic time recorded on this note does not necessarily reflect the actual time of the patient encounter. Departure Diagnosis: Primary Impression: Hiccup Condition: Stable Additional Instructions: Call your primary care doctor TOMORROW for an appointment during the next 1-2 days. See the doctor sooner or return here if your condition worsens before your appointment time. Thank you very much for allowing us to participate in your care. Your health and safety is our top priority at [facility]. Have prescriptions filled and follow precisely the directions on the label. Follow-up with primary care provider during the next 4 days and bring all the information and medications prescribed. If illness has not improved in 2 days, then make an appointment with primary care provider. If the provider is unavailable, return to the Emergency Department immediately. SUE RICHARDSON MD Feb 26, 2017 23:39
[2017-02-26] MEDS ORDERED: BACL10TA PO (23:41)
[2017-02-26] MEDS ORDERED: METO10TA92 PO (23:41)
== END 2017-02-27 00:15 | disposition home or self-care (01) ==
LOC: FTE 22:13
DX: R06.6 Hiccough (principal); E11.9 Type 2 diabetes mellitus without complications; I12.0 Hypertensive chronic kidney disease with stage 5 chronic kidney disease or end stage renal disease; N18.6 End stage renal disease; Z79.4 Long term (current) use of insulin; Z79.82 Long term (current) use of aspirin; Z96.651 Presence of right artificial knee joint; Z99.2 Dependence on renal dialysis
CPT/HCPCS: 99284

== ENCOUNTER 2017-05-26 11:20 | Day surgery (SDC) | END 2017-05-26 16:58 | disposition home or self-care (01) ==